=== PATIENT | male | born 1990 | race Caucasian/White ===

== ENCOUNTER 2023-08-02 07:06 | Emergency (ER) | payer BC, SELFPAY ==
[2023-08-02 07:20] VITALS: BP 142/74; BP 162/101; PULSE 69; PULSE 72; RESP 16; O2SAT 96; O2SAT 98; BMI 34.8
--- NOTE | 2023-08-02 07:22 | ECG_ITS ---
Test Reason : HYPERKALEMIA CONCERNS Blood Pressure : / mmHG Vent. Rate : 071 BPM Atrial Rate : 071 BPM P-R Int : 176 ms QRS Dur : 088 ms QT Int : 420 ms P-R-T Axes : 028 -38 045 degrees QTc Int : 456 ms Normal sinus rhythm Left axis deviation Abnormal ECG No previous ECGs available Referred By: Lo Finley Electronically Signed By:CLARK PHILIP MD
--- NOTE | 2023-08-02 07:23 | ED_ITS ---
HPI - General Adult General Chief complaint: Recheck/Abnormal Lab/Rx Stated complaint: LOW BS 33,CONFUSED,S 87 NOW PER EMS Source: patient and EMS Mode of arrival: EMS Limitations: other (will not answer questions at times initially talking then stopped talking) History of Present Illness HPI narrative: 33 yo male with reported IDDM, ESRD on HD T Th S due today at 9am visiting from [place] 911 was called today as he ran out of insulin at some point and then told me he went to [facility] and bought insulin over the counter with money - novolin. I told him that was not possible. He said yes. Then when I asked him [facility] he stopped responding and would not answer anymore questions. He will not answer what time how many units and what else happened. I can see old pump access on right lower abdomen that was removed. EMS found him with BS of 33 sweaty and given 12.5G of dextrose on arrival BS 85. friend is here and notes he bought starter insulin in [place] and filled his pump before bed she heard him snoring and saw him drooling and called 911 as she knew he could be hypoglycemic. complaint: hypoglycemia Onset (ago): unknown Radiation: non-radiation Severity: moderate Relieving factors: none Exacerbating factors: other (insulin use) Associated symptoms: weakness Treatments prior to arrival: other (IV dextrose) Related Data Allergies Allergy/AdvReac Type Severity Reaction Status Date / Time Unable to Assess Allergy Verified 08/02/23 07:23 Review of Systems 2 Review of Systems: ROS unable to be obtained due to not answering questions PMFSH Past Medical History Attestation statement: The following information was validated with the patient. Medical History ESRD (end stage renal disease) Diabetes Social History Social History (Updated 08/02/23 @ 07:27 by Lo Finley DO) Patient Tobacco Use Status: Tobacco use Unknown Advance Directives: No Advance Directives Information Provided: Yes Do you have a plan to hurt others: No Plan Physical Exam ED Vital Signs: Vital Signs - 24 hr 08/02/23 07:20 08/02/23 09:53 Temperature 97.9 F Pulse Rate 69 69 Respiratory Rate 16 16 Blood Pressure 162/101 H 185/110 H Pulse Oximetry 98 98 Oxygen Delivery Method Room Air Room Air BMI result Body Mass Index 34.8 Appearance: Alert. Oriented on arrival to person and place but then stopped answering questions after being questioned about buying insulin. He then started to talk to RN again after I left the room. No acute distress. Eyes: Pupils equal, round and reactive to light. ENT: Pharynx normal. atraumatic Neck: Normal inspection. Neck supple. CVS: Normal heart rate and rhythm. Pulses normal. Respiratory: No respiratory distress. Breath sounds normal. Abdomen: Soft and nontender. removed insulin pump still has subq port in place not attached to any device or tubing Skin: Skin warm and dry. Normal skin color. Normal skin turgor. Extremities: No lower extremity edema. No calf ttp Neuro: Oriented X 2. No motor deficit. No sensory deficit. Course Course Course Narrative: lab hemolyzing needs to get to HD by 11am or he will miss his chair and he needs to fly out to [facility]. He wants to leave AMA - eating and drinking alert and oriented x 3 aware of risks of leaving Medical Decision Making Medical Decision Making [facility] Narrative: 33 yo male with IDDM, ESRD on HD here with low blood sugar after using insulin - he is very odd and not forthcoming but will talk to RN and when friend arrived he is now alert and oriented x 3, laughing and watching TV. Suspect error in insulin use. No SI. No infectious symptoms. Will obtain EKG and basic labs. Differential Diagnosis Differential Diagnoses: The differential diagnosis associated with the presentation includes insulin use, hypoglycemia Admission/Observation Consideration of admission/observation: Escalation of care including admission/observation considered needs to leave prior to chemistries wants to leave AMA Lab Data [facility] Lab Attestation statement: I reviewed the patient's lab results. 08/02/23 07:29 08/02/23 09:55 Labs: Lab Results 08/02/23 08/02/23 08/02/23 Range/Units 07:15 07:29 07:46 WBC 6.9 (4.8-10.8) X10*3/uL RBC 3.91 L (4.60-5.80) X10*6/uL Hgb 11.9 L (14.0-18.0) g/dl Hct 37.6 L (42.0-52.0) % MCV 96.2 (80.0-98.0) fL MCH 30.4 (27.0-33.0) pg MCHC 31.6 (31.0-36.0) g/dl RDW 15.9 (11.0-16.0) % Plt Count 187 (160-400) X10*3/uL MPV 10.3 (9.4-12.4) fL Immature Gran % (Auto) 0.6 H (0.0-0.4) % Neut % (Auto) 72.1 (45-73) % Lymph % (Auto) 16.0 L (20-40) % [place] % (Auto) 6.5 (2-11) % Eos % (Auto) 4.1 H (0-4) % Baso % (Auto) 0.7 (0-2) % Lymph # (Auto) 1.1 L (1.2-4.9) X10*3/uL [place] # (Auto) 0.5 (0.1-1.2) X10*3/uL Eos # (Auto) 0.3 (0.0-0.4) X10*3/uL Baso # (Auto) 0.1 (0.0-0.2) X10*3/uL Abs Immat Gran (auto) 0.04 H (0.00-0.03) X10*3/uL Absolute Neuts (auto) 5.0 (2.0-8.3) x10*3/uL Absolute Nucleated RBC 0.000 (0.0-0.012) X10*3/uL Nucleated RBC % (auto) 0.0 (0.0-0.2) /100WBC Hold Purple Top Sodium Potassium Chloride Carbon Dioxide Anion Gap BUN Creatinine Estim Creat Clear Calc Estimated GFR POC Glucose 85 66 (60-115) mg/dL Random Glucose Calcium Magnesium (1.6-2.6) mg/dL Total Bilirubin (0.0-1.0) mg/dL Direct Bilirubin (0.0-0.5) mg/dL AST (5-37) U/L ALT (0-40) U/L Alkaline Phosphatase (39-117) U/L Total Protein (6.5-8.0) g/dL Albumin (3.5-5.0) g/dL Lipase (8-78) U/L Ethyl Alcohol < 10 mg/dL 08/02/23 08/02/23 08/02/23 Range/Units 08:05 08:28 08:38 WBC (4.8-10.8) X10*3/uL RBC (4.60-5.80) X10*6/uL Hgb (14.0-18.0) g/dl Hct (42.0-52.0) % MCV (80.0-98.0) fL MCH (27.0-33.0) pg MCHC (31.0-36.0) g/dl RDW (11.0-16.0) % Plt Count (160-400) X10*3/uL MPV (9.4-12.4) fL Immature Gran % (Auto) (0.0-0.4) % Neut % (Auto) (45-73) % Lymph % (Auto) (20-40) % [place] % (Auto) (2-11) % Eos % (Auto) (0-4) % Baso % (Auto) (0-2) % Lymph # (Auto) (1.2-4.9) X10*3/uL [place] # (Auto) (0.1-1.2) X10*3/uL Eos # (Auto) (0.0-0.4) X10*3/uL Baso # (Auto) (0.0-0.2) X10*3/uL Abs Immat Gran (auto) (0.00-0.03) X10*3/uL Absolute Neuts (auto) (2.0-8.3) x10*3/uL Absolute Nucleated RBC (0.0-0.012) X10*3/uL Nucleated RBC % (auto) (0.0-0.2) /100WBC Hold Purple Top Sodium Cancelled Potassium Cancelled Chloride Cancelled Carbon Dioxide Cancelled Anion Gap Cancelled BUN Cancelled Creatinine Cancelled Estim Creat Clear Calc Cancelled Estimated GFR Cancelled POC Glucose 108 138 H (60-115) mg/dL Random Glucose Cancelled Calcium Cancelled Magnesium (1.6-2.6) mg/dL Total Bilirubin (0.0-1.0) mg/dL Direct Bilirubin (0.0-0.5) mg/dL AST (5-37) U/L ALT (0-40) U/L Alkaline Phosphatase (39-117) U/L Total Protein (6.5-8.0) g/dL Albumin (3.5-5.0) g/dL Lipase (8-78) U/L Ethyl Alcohol mg/dL 08/02/23 08/02/23 Range/Units 08:40 09:55 WBC (4.8-10.8) X10*3/uL RBC (4.60-5.80) X10*6/uL Hgb (14.0-18.0) g/dl Hct (42.0-52.0) % MCV (80.0-98.0) fL MCH (27.0-33.0) pg MCHC (31.0-36.0) g/dl RDW (11.0-16.0) % Plt Count (160-400) X10*3/uL MPV (9.4-12.4) fL Immature Gran % (Auto) (0.0-0.4) % Neut % (Auto) (45-73) % Lymph % (Auto) (20-40) % [place] % (Auto) (2-11) % Eos % (Auto) (0-4) % Baso % (Auto) (0-2) % Lymph # (Auto) (1.2-4.9) X10*3/uL [place] # (Auto) (0.1-1.2) X10*3/uL Eos # (Auto) (0.0-0.4) X10*3/uL Baso # (Auto) (0.0-0.2) X10*3/uL Abs Immat Gran (auto) (0.00-0.03) X10*3/uL Absolute Neuts (auto) (2.0-8.3) x10*3/uL Absolute Nucleated RBC (0.0-0.012) X10*3/uL Nucleated RBC % (auto) (0.0-0.2) /100WBC Hold Purple Top SEE NOTE Sodium 134 L Potassium 6.2 H* Chloride 96 Carbon Dioxide 25 Anion Gap 19 BUN 44 H Creatinine 9.79 H* Estim Creat Clear Calc 13.2 Estimated GFR 6 POC Glucose (60-115) mg/dL Random Glucose 336 H Calcium 9.1 Magnesium 2.9 H (1.6-2.6) mg/dL Total Bilirubin 0.4 (0.0-1.0) mg/dL Direct Bilirubin 0.1 (0.0-0.5) mg/dL AST 15 (5-37) U/L ALT 16 (0-40) U/L Alkaline Phosphatase 492 H (39-117) U/L Total Protein 8.3 H (6.5-8.0) g/dL Albumin 4.1 (3.5-5.0) g/dL Lipase 17 (8-78) U/L Ethyl Alcohol mg/dL Independent Interpretation I performed an independent interpretation of an: EKG Interpretation: Rate: 71 Rhythm: NSR [place]: left Normal P waves. Normal MARVIN. Normal QRS complex. ST T wave : no ISA, normal qTC: 456 prior studies: no acute ischemia The study has been interpreted contemporaneously by me. . Independent Historian Clinical information obtained from an independent historian. History obtained from or confirmed by: Friend and EMS Critical Care Time Critical Care Time Critical Care Time: Yes Total Critical Care Time: 45 Attestation: hypoglycemia intervention, calls to HD center, repeat assessment I attest to this time spent taking care of the patient Discharge Plan Discharge Clinical Impression: Hypoglycemia Patient Disposition: Left Against Medical Advice Instructions: Hypoglycemia in a Person with Diabetes (ED), Against Medical Advice (ED) Additional Instructions: go to dialysis check blood sugar frequently today return for any symptoms of low blood sugar or worrisome symptoms Interventions: ED Discharge Assessment Last Done: 08/02/23 09:53 Discharge Date/Time: 08/02/23 10:17 Print Language: Maori
[2023-08-02 07:28] LABS: Glucose, Whole Blood 85 mg/dL (60-115)
[2023-08-02 07:32] LABS: MANUAL DIFF FLAG NO
[2023-08-02 07:37] LABS: Basophils Absolute Auto 0.1 X10*3/uL (0.0-0.2); Basophils Percent Auto 0.7 % (0-2); Eosinophils Absolute Auto 0.3 X10*3/uL (0.0-0.4); Eosinophils Percent Auto 4.1 % (0-4); Hematocrit 37.6 % (42.0-52.0); Hemoglobin 11.9 g/dl (14.0-18.0); Imm Gran Abs Auto 0.04 X10*3/uL (0.00-0.03); Imm Gran Pct Auto 0.6 % (0.0-0.4); Lymphocytes Absolute Auto 1.1 X10*3/uL (1.2-4.9); Mean Corpuscular HGB Conc 31.6 g/dl (31.0-36.0); Mean Corpuscular Hemoglobin 30.4 pg (27.0-33.0); Mean Corpuscular Volume 96.2 fL (80.0-98.0); Mean Platelet Volume 10.3 fL (9.4-12.4); Monocytes Absolute Auto 0.5 X10*3/uL (0.1-1.2); Monocytes Percent Auto 6.5 % (2-11); Neutrophils Percent Auto 72.1 % (45-73); Platelet Count 187 X10*3/uL (160-400); Red Blood Count 3.91 X10*6/uL (4.60-5.80); Red Cell Distribution Width 15.9 % (11.0-16.0); White Blood Count 6.9 X10*3/uL (4.8-10.8)
--- NOTE | 2023-08-02 07:48 | PC.NURSE ---
repeat POC obtained displaying 66mg/dL. dr. hnadley aware - pt provided w/ pb &j, crackers, gingerale. effectiveness pending.
[2023-08-02 08:07] LABS: Ethanol < 10 mg/dL
[2023-08-02 08:08] LABS: Glucose, Whole Blood 108 mg/dL (60-115)
[2023-08-02 08:08] LABS: Glucose, Whole Blood 66 mg/dL (60-115)
--- NOTE | 2023-08-02 08:30 | PC.NURSE ---
lab called dr. handley with POC critical lab value of 700mg/dL. repeat BS obtained via glucometer post PO food administration - repeat BS displayed as 138mg/dL. pt remains a&ox4. vs remain stable. pt skin no longer cool/clammy. skin wpd. family remains bedside at this time. respirations remain even and unlabored. plan of care ongoing. call scott placed within reach.
[2023-08-02 08:31] LABS: Glucose, Whole Blood 138 mg/dL (60-115)
--- NOTE | 2023-08-02 08:46 | MHC.CM.ED ---
Received case management consult from Dr Finley. Patient lives in [place]. Currently visiting a friend in [place]. Scheduled for HD at [facility] at 9am. Supposed to fly back to [facility]. Patient currently here with low blood sugar. T/W spoke with Marcela at [facility] in [facility]. Patient has to be there by 11am the latest. Otherwise they will not be able to perform a HD session. Dr Finley aware. Continue to monitor for d/c needs.
[2023-08-02 09:53] VITALS: BP 185/110; PULSE 69; RESP 16; TEMP 36.6; O2SAT 98
[2023-08-02 10:27] LABS: Glucose Random 336 mg/dL (60-115)
[2023-08-02 11:18] LABS: Anion Gap 19 (12-20)
[2023-08-02 11:29] LABS: Alanine Aminotransferase 16 U/L (0-40); Albumin Level 4.1 g/dL (3.5-5.0); Alkaline Phosphatase 492 U/L (39-117); Aspartate Amino Transferase 15 U/L (5-37); Bilirubin Direct 0.1 mg/dL (0.0-0.5); Bilirubin Total 0.4 mg/dL (0.0-1.0); Blood Urea Nitrogen 44 mg/dL (9-16); Calcium 9.1 mg/dL (8.4-10.2); Carbon Dioxide 25 mmol/L (22-29); Chloride 96 mmol/L (96-108); Creatinine Clr Calc Pharmacy 13.2; Estimated Glomerular Filt Rate 6; Lipase 17 U/L (8-78); Magnesium 2.9 mg/dL (1.6-2.6); Potassium 6.2 mmol/L (3.3-5.1); Sodium 134 mmol/L (135-145); Total Protein 8.3 g/dL (6.5-8.0)
== END 2023-08-02 10:17 | disposition left against medical advice (07) ==
PROVIDERS: Emergency Provider Emergency Medicine
DX: E11.22 Type 2 diabetes mellitus with diabetic chronic kidney disease (principal); E11.649 Type 2 diabetes mellitus with hypoglycemia without coma; N18.6 End stage renal disease; Z99.2 Dependence on renal dialysis; Z53.29 Procedure and treatment not carried out because of patient's decision for other reasons
CPT/HCPCS: 36415; 80048; 80076; 80307; 82947; 83690; 83735; 85025; 93005; 99283

== ENCOUNTER → 2023-08-02 07:22 | Outpatient (BNV) | payer BC, SELFPAY | PROVIDERS: Emergency Provider Emergency Medicine; Visit Provider Internal Medicine Cardiovascular Disease | DX: R94.31 Abnormal electrocardiogram [ECG] [EKG] (principal) | CPT/HCPCS: 93010 ==